=== PATIENT | female | born 1990 | race Two or more races ===

== ENCOUNTER 2019-05-16 10:50 | Observation (INO) | payer OTHER, MEDICAID ==
[~2019-05-16] VITALS: Ht 177.8 cm; Wt 76.2 kg
[2019-05-16] MEDS ORDERED: LACTATED RINGER'S 1,000 ML IV ONE ×2 (11:30→12:30)
[2019-05-16] MEDS ORDERED: ONDANSETRON HCL 4 MG/2 ML VIAL IV PRN (11:30)
[2019-05-16] MEDS ORDERED: TERBUTALINE SULFATE 1 MG/ML 1ML VIAL SC ONE (12:30)
[2019-05-16] MEDS ORDERED: LACTATED RINGER'S 1,000 ML IV SCH (14:15)
[2019-05-16 15:32] LABS: Potassium 3.5 mmol/L (3.5-5.1)
== END 2019-05-16 16:50 | disposition home or self-care (01) | DRG 833 ==
LOC: LDRP 10:50
PROVIDERS: ADMIT Specialist; ATTEND Specialist
DX: O62.9 Abnormality of forces of labor, unspecified (principal); O99.613 Diseases of the digestive system complicating pregnancy, third trimester; R19.7 Diarrhea, unspecified; Z3A.37 37 weeks gestation of pregnancy
CPT/HCPCS: 36415; 59025; 80051; 81002; 96361; 96372; 96374; G0378; J2405; J3105; 96366